=== PATIENT | female | born 1985 | race Caucasian/White ===

== ENCOUNTER → 2017-04-20 | Day surgery (SDC) | payer BC ==
[~2017-04-20] VITALS: Ht 165.1 cm; Wt 125.0 kg
[~2017-04-20] MED LIST: *ONDANSETRON 4 MG VIAL PERIprocedural Use ONLY ONE; *morphine SULFATE 8 MG/ML PERIprocedure ONLY ONE; ACETAMINOPHEN 1000 MG/100 ML VIAL IV SCH; CHLORHEXIDINE GLUCONATE 2 % 1 PACK (2 CLOTHS) TOPICAL PRN; DEXAMETHASONE SOD PHOS 4 MG/ML VIAL ONE; DO NOT ADM ANY ANTICOAGULANT DRUGS PRN; FAMOTIDINE 20 MG/2 ML VIAL ONE; INSULIN HUMAN REGULAR 1,000 UNITS/10 ML VIAL SQ PRN; KETOROLAC TROMETHAMINE 60 MG/2 ML (IM) VIAL IM ONE; LACTATED RINGER'S 1000 ML INJ 1,000 ML IV ONE; LACTATED RINGER'S 1000 ML IV PRN; METOCLOPRAMIDE HCL 10 MG/2 ML VIAL IV PRN; METOPROLOL TARTRATE 25 MG TAB PO PRN; MIDAZOLAM HCL 2 MG/2 ML VIAL ONE; ONDANSETRON HCL 4 MG/2 ML VIAL IV PUSH ONE; OXYTOCIN 10 UNIT/ML AMP ONE; POVIDONE IODINE 5% (ANTISEPSIS KIT) 4 APPLICATIONS EACH NARE PRN; PREN1TAB60 PO; PROPOFOL 200 MG/20 ML AMP IV ONE; SODIUM CHLORID 0.9% 500 ML IV PRN; SODIUM CHLORIDE 0.9% INJ 100 ML ONE; fentaNYL CITRATE 250 MCG/5 ML AMP ONE
[2017-04-20 06:41] VITALS: BP 142/70; PULSE 77; RESP 18; TEMP 98.6; O2SAT 98
[2017-04-20] MEDS: CLINDAMYCIN INJ 600 MG in SODIUM CHLORIDE 0.9% INJ 100 ML IV SCH ×2 (07:13→07:32)
--- NOTE | 2017-04-20 09:18 | MH ---
cc: MANDIE CORDOVA DATE OF ADMISSION: 04/20/2017 ADMISSION DIAGNOSIS Spontaneous at about 8 weeks gestation. HISTORY OF PRESENT ILLNESS The patient is a 32-year-old white female, para 0 with an LMP of 02/17/2017, EDC of 11/24/17. Ultrasound was performed initially on 04/09/2017 and showed two sacs, one empty, one had a small pole, did not appeared viable. She has no bleeding. A follow-up Beta-titer on 04/10/2017 showed appropriate rise. Repeat ultrasound on 04/16/2017 showed now two empty sacs. She is now admitted for D&C for spontaneous . PAST MEDICAL HISTORY PREVIOUS SURGERY Laparoscopic cholecystectomy in 2015, appendectomy in 2010. ALLERGIES PENICILLIN. TRANSFUSIONS None. SOCIAL HISTORY She is . She works at [employer]. Alcohol, tobacco and drugs are none. PHYSICAL EXAMINATION GENERAL: Obese white female. VITAL SIGNS: Stable. HEENT: Exam is normal. CHEST: Chest is clear. HEART: Regular rate. BREASTS: The breasts are symmetrical. ABDOMEN: Benign. PELVIC: Normal external genitalia and BUS. Vagina is normal, cervix is normal. Uterus is about 8 weeks size. Adnexa nonpalpable. ASSESSMENT As above. PLAN She is now admitted for outpatient D&C. While in the office I explained the procedure, the risk and benefits, complications and the patient would like to proceed. MD XAVIER Muñoz/ADA /10:12 AM /9:14 AM
[2017-04-20 10:20] VITALS: BP 110/58; PULSE 70; RESP 16; TEMP 98.8; O2SAT 97
--- NOTE | 2017-04-21 12:37 | MP ---
cc: MANDIE CORDOVA DATE OF SURGERY 04/20/2017 PREOPERATIVE DIAGNOSIS Spontaneous eight weeks' gestation. POSTOPERATIVE DIAGNOSIS Spontaneous eight weeks' gestation. PROCEDURE Suction and sharp D&C. ANESTHESIA General LMA ESTIMATED BLOOD LOSS About 200 cc FLUIDS About 300 cc of crystalloid. OBJECTIVE FINDINGS Following the induction of adequate general LMA anesthesia, the patient was prepped and draped supine on the operating table in the dorsolithotomy position in the usual sterile fashion with the bladder being drained via in and out catheterization. Exams under anesthesia revealed an eight weeks' size anterior uterus, no adnexal masses. A heavy-weighted speculum was placed in the posterior fornix of the vagina. The anterior lip of the cervix grasped with a single toothed tenaculum. Cervix and uterus sounded to 8 cm. The cervix was then dilated to a #18 Hanks dilator. A #8 suction curette was passed to remove the POC-like materials, followed by a small sharp curette to dislodge adherent tissue. The suction catheter was passed again to pick out hand loose tissue and debris. All instruments were removed. The counts were correct. The patient's legs taken out of the stirrups and she was awakened and taken to the recovery room in good condition. MD XAVIER Muñoz/AXEL /7:56 AM /12:30 PM
== END | disposition home or self-care (01) ==
LOC: HSDC 05:37
PROVIDERS: ATTEND Obstetrics & Gynecology
DX: O03.4 Incomplete spontaneous abortion without complication (principal); Z3A.08 8 weeks gestation of pregnancy
CPT/HCPCS: 01965; 59812; 88233; 88264; 88280; 88305; J0131; J1100; J1885; J2250; J2270; J2405; J2590; J3010; J7120